=== PATIENT | female | born 1975 | race American Indian/Alaskan Native ===

== ENCOUNTER 2017-04-30 20:42 | Observation (INO) | payer MEDICAID, OTHER ==
[2017-04-30 20:43] VITALS: BMI 32.5
--- NOTE | 2017-04-30 22:13 | ED PDOC ---
Arrival/HPI <SudheerMario - Last Filed: 05/01/17 04:25> - General Historian: Patient - History of Present Illness Time/Duration: Prior to Arrival Symptom Onset: Sudden Symptom Course: Unchanged Context: Home <Elizabeth Styles - Last Filed: 05/01/17 07:01> - General Chief Complaint: Lower Extremity Problem/Injury Time Seen by Provider: 04/30/17 21:53 - History of Present Illness Narrative History of Present Illness (Text): 04/30/17 22:12 41 yo female with PMH of herniated disk presented to ED with back pain. Patient states that she had surgery for her herniated disc about 1 month ago. After surgery patient states she did not have pain until today. Patient states that the pain is similar to the pain she had before. she denies any trauma, straining or stretching. Pain is 10/10. She took Tylenol previously for the pain however today the pain continued. She denies any fever, chills, urinary problems. PMD: Dr. Fontana (Elizabeth Styles) Past Medical History - Provider Review Nursing Documentation Reviewed: Yes - Past History Past History: No Previous - Infectious Disease Hx of Infectious Diseases: None - Tetanus Immunization Tetanus Immunization: Unknown - Reproductive Menopause: No - Musculoskeletal/Rheumatological Hx Back Pain: Yes - Psychiatric Hx Substance Use: No - Surgical History Other/Comment: hernia repair - Anesthesia Hx Anesthesia: Yes Hx Anesthesia Reactions: No Hx Malignant Hyperthermia: No <Elizabeth Styles - Last Filed: 05/01/17 07:01> Family/Social History - Physician Review Nursing Documentation Reviewed: Yes Family/Social History: No Known Family HX Smoking Status: Never Smoked Hx Alcohol Use: No Hx Substance Use: No <Elizabeth Styles - Last Filed: 05/01/17 07:01> Allergies/Home Meds <SudheerMario - Last Filed: 05/01/17 04:25> <Elizabeth Styles - Last Filed: 05/01/17 07:01> Allergies/Adverse Reactions: Allergies No Known Allergies Allergy (Verified 04/01/16 09:07) Review of Systems - Review of Systems Constitutional: Normal. absent: Fatigue, Fevers Eyes: Normal. absent: Vision Changes ENT: Normal. absent: Sore Throat, Rhinorrhea, Sinus Congestion Respiratory: Normal. absent: SOB, Cough, Wheezing Cardiovascular: Normal. absent: Chest Pain, Edema, Calf Pain, Syncope Gastrointestinal: Normal. absent: Abdominal Pain, Constipation, Diarrhea, Nausea, Vomiting Genitourinary Female: Normal. absent: Dysuria, Frequency, Hematuria Musculoskeletal: Back Pain. absent: Neck Pain, Myalgias Skin: Normal. absent: Rash, Pruritis, Laceration, Ulcer Neurological: Normal. absent: Headache, Dizziness, Focal Weakness Endocrine: Normal. absent: Polyuria, Polydipsia Hemo/Lymphatic: Normal. absent: Easy Bleeding, Easy Bruising Psychiatric: Normal <Elizabeth Styles - Last Filed: 05/01/17 07:01> Physical Exam - Systems Exam Head: Present: Atraumatic, Normocephalic Pupils: Present: PERRL. No: Non-Reactive, Pinpoint Extroacular Muscles: Present: EOMI. No: Entrapment Conjunctiva: Present: Normal Mouth: Present: Moist Mucous Membranes Nose (External): Present: Atraumatic Neck: Present: Normal Range of Motion Respiratory/Chest: Present: Clear to Auscultation, Good Air Exchange. No: Respiratory Distress, Accessory Muscle Use, Wheezes, Rales, Rhonchi, Tachypneic Cardiovascular: Present: Regular Rate and Rhythm, Normal S1, S2. No: Murmurs, Tachycardic, Bradycardic Abdomen: Present: Normal Bowel Sounds. No: Tenderness, Distention, Peritoneal Signs Back: Present: Paraspinal Tenderness Upper Extremity: Present: Normal Inspection, NORMAL PULSES. No: Cyanosis, Edema , Tenderness, Swelling Lower Extremity: Present: Normal Inspection. No: Edema, CALF TENDERNESS, NORMAL PULSES, Tenderness, Swelling Neurological: Present: GCS=15, CN II-XII Intact, Speech Normal Skin: Present: Warm, Dry, Normal Color. No: Rashes Psychiatric: Present: Alert, Oriented x 3, Normal Insight, Normal Concentration <Elizabeth Styles - Last Filed: 05/01/17 07:01> Vital Signs Temp Pulse Resp BP Pulse Ox 05/01/17 04:00 97.8 F 67 18 118/80 100 04/30/17 22:04 98.9 F 90 16 99 04/30/17 20:50 98.8 F 84 16 122/78 99 Medical Decision Making <Mario Willard - Last Filed: 05/01/17 04:25> <Elizabeth Styles - Last Filed: 05/01/17 07:01> ED Course and Treatment: In agreement with resident note, which includes further HPI details. Patient was seen and evaluated with resident, came up with plan and treatment together. (Mario Willard) 04/30/17 22:23 Impression: 41 yo female with PMH of herniated disk presented to ED with Back pain. differential diagnoses includes but not limited to: - herniated disk, muscle strain Plan: - flexril and toradol - reassure and reassess 04/30/17 23:33 - patient states pain has improved but continues to occur with any movements. Will give percocet. 05/01/17 03:57 - xray of lumbar spine does not show any abnormalities. Patient admitted for observation. 05/01/17 04:32 - Patient is doing well. Discharge plan was discussed with patient, she is in agreement. (Elizabeth Styles) - Medication Orders Current Medication Orders: Discontinued Medications Cyclobenzaprine HCl (Flexeril) 10 mg PO STAT STA Stop: 04/30/17 22:10 Last Admin: 04/30/17 22:26 Dose: 10 mg Ketorolac Tromethamine (Toradol) 60 mg IM STAT STA Stop: 04/30/17 22:10 Last Admin: 04/30/17 22:26 Dose: 60 mg Oxycodone/Acetaminophen (Percocet 5/325 Mg Tab) 1 tab PO STAT STA Stop: 04/30/17 23:33 Last Admin: 04/30/17 23:44 Dose: 1 tab ED OBSERVATION Discharge: Yes Date of observation admission: 04/30/17 Time of observation admission: 22:30 <Mario Willard - Last Filed: 05/01/17 04:25> <Elizabeth Styles - Last Filed: 05/01/17 07:01> - Observation admission statement Patient is being placed in observation because:: Back pain (Mario Willard) - Goals of Observation Goals of observation are:: Pending lumbar spine X-ray, reevaluation and disposition. (Mario Willard) - Progress Note Progress Note: 05/01/17 00:30 Patient resting comfortably with stable vitals. no new complaints. 05/01/17 02:34 Patient resting comfortably with stable vitals. no new complaints. (Mario Willard) - PA / [employer]OB [employer]EM[employer] / Resident Statement [facility] has reviewed & agrees with the documentation as recorded. / has examined the patient and agrees with the treatment plan. <Mario Willard - Last Filed: 05/01/17 04:25> Disposition/Present on Arrival <Mario Willard - Last Filed: 05/01/17 04:25> - Present on Arrival Any Indicators Present on Arrival: No History of DVT/PE: No History of Uncontrolled Diabetes: No Urinary Catheter: No History of Decub. Ulcer: No History Surgical Site Infection Following: None - Disposition Have Diagnosis and Disposition been Completed?: Yes Disposition Time: 04:30 <Elizabeth Styles - Last Filed: 05/01/17 07:01> - Disposition Diagnosis: Back pain Disposition: HOME/ ROUTINE Condition: GOOD
[2017-04-30] MEDS ORDERED: Oxycodone/Acetaminophen 5/325 mg Tab PO STA (23:32)
[2017-05-01 05:08] VITALS: BP 118/80; PULSE 67; RESP 18; TEMP 97.8; O2SAT 100
--- NOTE | 2017-05-01 08:34 | RAD ---
PROCEDURE: Radiographs of the Lumbar Spine. HISTORY: lower back pain COMPARISON: No prior. FINDINGS: BONES: Normal alignment. No listhesis. No fracture. DISC SPACES: Unremarkable. OTHER FINDINGS: None. IMPRESSION: Unremarkable radiographs of the lumbar spine.
== END 2017-05-01 04:25 | disposition home or self-care (01) ==
LOC: ED 20:42 → EROBSV 22:30
PROVIDERS: ADMIT Emergency Medicine; ATTEND Emergency Medicine
DX: M54.9 Dorsalgia, unspecified (principal); Z98.890 Other specified postprocedural states
CPT/HCPCS: 72110; 96372; 99284; G0378; J1885